=== PATIENT | female | born 1945 | race Caucasian/White ===

== ENCOUNTER 2017-03-13 02:55 | Inpatient (IN) | payer MEDICARE, OTHER ==
[~2017-03-13] VITALS: Ht 162.6 cm; Wt 64.0 kg
[~2017-03-13 02:55] MED LIST: BENICAR; CEFD300C37 PO; CLON0.1T PO; CLONIDINE; HYDR50CA PO; LISI-170 PO; LORA2TAB99 PO; NEBI20TA2 PO; OLME40TA12; OXYC20TA42 PO; OXYC5TAB3 PO
[2017-03-13 03:21] LABS: HEMATOCRIT 36.7 % (34.6-47.8); HEMOGLOBIN 12.3 g/dL (11.7-16.4); WHITE BLOOD COUNT 6.6 x10^3/uL (3.4-10)
[2017-03-13] MEDS ORDERED: SODIUM CHLORIDE FLUSH 10ML SYR IVF ONE (03:30)
[2017-03-13] MEDS ORDERED: ONDANSETRON 2MG/ML, 2ML IVPush ONE (03:30)
[2017-03-13] MEDS ORDERED: SODIUM CHLORIDE 0.9% 1,000ML IVBOLUS ONE (03:30)
[2017-03-13] MEDS ORDERED: ONDANSETRON 2MG/ML, 2ML ONE (03:34)
[2017-03-13 03:35] LABS: ASPARTATE AMINO TRANSFERASE 17 U/L (15-37); BLOOD UREA NITROGEN 17 mg/dL (7-18)
[2017-03-13 03:40] LABS: IS PT STATUS REG ER OR PRE ER? YES
[2017-03-13] MEDS ORDERED: CEFTRIAXONE PMX 1GM/50ML 50 ML IV ONE (04:00)
[2017-03-13] MEDS ORDERED: CEFTRIAXONE PMX 1GM/50ML 50 ML ONE (04:11)
[2017-03-13 05:00] VITALS: BP 174/99
[2017-03-13] MEDS ORDERED: BISACODYL 10 MG SUPP PR PRN (05:30)
[2017-03-13] MEDS ORDERED: ENALAPRILAT 1.25 MG/ML, 2ML IVPush PRN (05:30)
[2017-03-13] MEDS ORDERED: LABETALOL 5MG/ML, 20ML IVPush PRN (05:30)
[2017-03-13] MEDS ORDERED: MAGNESIUM SULFATE PMX 2GM/50ML 50 ML IV ONE (05:30)
[2017-03-13] MEDS: NEBIVOLOL MC SCH ×2 (05:30→13:30)
[2017-03-13] MEDS: SODIUM CHLORIDE 0.9% 1,000 ML IV SCH ×2 (05:42→13:16)
[2017-03-13 07:38] VITALS: BP 159/97
[2017-03-13] MEDS ORDERED: NEBIVOLOL HCL 40 MG PO SCH (09:00)
[2017-03-13 09:55] VITALS: BP 173/81
[2017-03-13] MEDS: OxyconTIN ER 20 MG TAB.ER PO SCH ×2 (10:13→20:59)
[2017-03-13] MEDS: ENOXAPARIN 40 MG/0.4 ML SQ SCH (10:14)
[2017-03-13] MEDS: LISINOPRIL 20 MG TABLET PO SCH ×2 (10:14→20:59)
[2017-03-13 13:33] VITALS: BP 156/90
[2017-03-13] MEDS ORDERED: LORazepam 1MG TABLET ONE (14:19)
[2017-03-13] MEDS: OXYcodone IR 5MG TABLET PO PRN (16:55)
[2017-03-13] MEDS: PROMETHAZINE 25 MG/ML, 1ML IM PRN (17:06)
[2017-03-13 19:34] VITALS: BP 127/74
[2017-03-13] MEDS: METOPROLOL TARTRATE 25 MG TABLET PO SCH (19:36)
[2017-03-14] MEDS: PROMETHAZINE 25 MG/ML, 1ML IM PRN (00:19)
[2017-03-14 01:44] VITALS: BP 144/77
[2017-03-14] MEDS: CEFTRIAXONE PMX 1GM/50ML 50 ML IV SCH (05:08)
[2017-03-14] MEDS: OXYcodone IR 5MG TABLET PO PRN ×2 (05:11→18:07)
[2017-03-14 05:17] LABS: HEMATOCRIT 39.6 % (34.6-47.8); HEMOGLOBIN 13.1 g/dL (11.7-16.4); WHITE BLOOD COUNT 5.7 x10^3/uL (3.4-10)
[2017-03-14 05:34] LABS: ASPARTATE AMINO TRANSFERASE 22 U/L (15-37); BLOOD UREA NITROGEN 9 mg/dL (7-18)
[2017-03-14] MEDS: METOPROLOL TARTRATE 25 MG TABLET PO SCH ×2 (06:08→18:06)
[2017-03-14] MEDS ORDERED: ACETAMINOPHEN 325 MG TABLET PO PRN (08:00)
[2017-03-14 08:17] VITALS: BP 145/79
[2017-03-14] MEDS: OxyconTIN ER 20 MG TAB.ER PO SCH ×2 (09:31→21:18)
[2017-03-14] MEDS: LISINOPRIL 20 MG TABLET PO SCH ×2 (09:32→21:19)
[2017-03-14] MEDS: DOCUSATE 100 MG CAPSULE PO SCH ×2 (09:32→21:18)
[2017-03-14] MEDS: POLYETHYLENE GLYCOL 17 GM PACKET PO SCH (09:33)
[2017-03-14] MEDS: ENOXAPARIN 40 MG/0.4 ML SQ SCH (09:35)
[2017-03-14] MEDS: SUMATRIPTAN 25 MG TABLET PO PRN ×2 (12:13→22:33)
[2017-03-14 13:59] VITALS: BP 164/84
[2017-03-14] MEDS ORDERED: LORazepam 1MG TABLET ONE (15:58)
[2017-03-14 18:05] VITALS: BP 116/74
[2017-03-14 21:13] VITALS: BP 116/70
[2017-03-15] MEDS ORDERED: LORazepam 1MG TABLET ONE ×4 (00:05→23:57)
[2017-03-15 03:57] VITALS: BP 160/88
[2017-03-15] MEDS: CEFTRIAXONE PMX 1GM/50ML 50 ML IV SCH (03:59)
[2017-03-15] MEDS: METOPROLOL TARTRATE 25 MG TABLET PO SCH ×2 (05:38→18:19)
[2017-03-15] MEDS: OXYcodone IR 5MG TABLET PO PRN (05:39)
[2017-03-15 07:54] VITALS: BP 155/71
[2017-03-15] MEDS: LISINOPRIL 20 MG TABLET PO SCH ×2 (08:16→19:44)
[2017-03-15] MEDS: DOCUSATE 100 MG CAPSULE PO SCH ×2 (08:16→19:45)
[2017-03-15] MEDS: OxyconTIN ER 20 MG TAB.ER PO SCH ×2 (08:16→19:44)
[2017-03-15] MEDS: ENOXAPARIN 40 MG/0.4 ML SQ SCH (08:17)
[2017-03-15] MEDS: POLYETHYLENE GLYCOL 17 GM PACKET PO SCH (08:17)
[2017-03-15] MEDS ORDERED: SUMATRIPTAN 50 MG TABLET PO PRN (10:30)
[2017-03-15] MEDS: BUTALB/APAP/CAFFEINE 50MG/325MG/40MG PO PRN (14:13)
[2017-03-15 14:29] VITALS: BP 156/79
[2017-03-15 18:18] VITALS: BP 127/73
[2017-03-16 03:37] VITALS: BP 128/81
[2017-03-16] MEDS: BUTALB/APAP/CAFFEINE 50MG/325MG/40MG PO PRN (03:46)
[2017-03-16] MEDS: CEFTRIAXONE PMX 1GM/50ML 50 ML IV SCH (03:46)
[2017-03-16] MEDS: METOPROLOL TARTRATE 25 MG TABLET PO SCH ×2 (06:00→17:49)
[2017-03-16] MEDS ORDERED: LORazepam 1MG TABLET ONE ×2 (07:49→16:16)
[2017-03-16] MEDS: LISINOPRIL 20 MG TABLET PO SCH ×2 (08:02→20:27)
[2017-03-16] MEDS: POLYETHYLENE GLYCOL 17 GM PACKET PO SCH (08:02)
[2017-03-16] MEDS: ENOXAPARIN 40 MG/0.4 ML SQ SCH (08:02)
[2017-03-16] MEDS: DOCUSATE 100 MG CAPSULE PO SCH ×2 (08:03→20:27)
[2017-03-16] MEDS: OxyconTIN ER 20 MG TAB.ER PO SCH ×2 (08:03→20:28)
[2017-03-16 08:20] VITALS: BP 147/89
[2017-03-16] MEDS: OXYcodone IR 5MG TABLET PO PRN ×4 (12:00→22:13)
[2017-03-16 14:35] VITALS: BP 110/66
[2017-03-16 17:49] VITALS: BP 98/64
[2017-03-16 19:53] VITALS: BP 112/72
[2017-03-17] MEDS ORDERED: LORazepam 1MG TABLET ONE ×3 (00:01→17:41)
[2017-03-17] MEDS ORDERED: SUMATRIPTAN 100 MG TABLET PO PRN (01:00)
[2017-03-17 02:30] VITALS: BP 142/85
[2017-03-17] MEDS: CEFTRIAXONE PMX 1GM/50ML 50 ML IV SCH (03:45)
[2017-03-17] MEDS: OXYcodone IR 5MG TABLET PO PRN ×4 (04:34→23:51)
[2017-03-17] MEDS: METOPROLOL TARTRATE 25 MG TABLET PO SCH ×2 (04:34→17:46)
[2017-03-17 08:08] VITALS: BP 139/79
[2017-03-17] MEDS: OxyconTIN ER 20 MG TAB.ER PO SCH ×2 (08:42→20:10)
[2017-03-17] MEDS: DOCUSATE 100 MG CAPSULE PO SCH ×2 (08:42→20:08)
[2017-03-17] MEDS: ENOXAPARIN 40 MG/0.4 ML SQ SCH (08:42)
[2017-03-17] MEDS: POLYETHYLENE GLYCOL 17 GM PACKET PO SCH (08:42)
[2017-03-17] MEDS: LISINOPRIL 20 MG TABLET PO SCH ×2 (08:42→20:09)
[2017-03-17 13:57] VITALS: BP 132/76
[2017-03-17] MEDS ORDERED: CEFD300C37 PO (18:23)
[2017-03-17] MEDS ORDERED: OXYC5TAB3 PO (18:23)
[2017-03-17] MEDS ORDERED: ENOX40SY4 SQ (18:23)
[2017-03-17] MEDS ORDERED: SUMA100T3 PO (18:23)
[2017-03-17] MEDS ORDERED: METH12VI2 SQ (18:23)
[2017-03-17] MEDS ORDERED: BUTA-177 PO (18:23)
[2017-03-17] MEDS ORDERED: METHYLNALTREXONE 12 MG/0.6 ML SQ SCH (18:30)
[2017-03-17] MEDS ORDERED: MAGNESIUM CITRATE 300ML ORAL SOL PO PRN ×2 (18:30→19:30)
[2017-03-17] MEDS ORDERED: LABETALOL 5MG/ML, 20ML IVPush PRN (19:30)
[2017-03-17] MEDS ORDERED: ENALAPRILAT 1.25 MG/ML, 2ML IVPush PRN (19:30)
[2017-03-17] MEDS ORDERED: ACETAMINOPHEN 325 MG TABLET PO PRN (19:30)
[2017-03-17 19:53] VITALS: BP 102/65
[2017-03-17] MEDS: PROMETHAZINE 25 MG/ML, 1ML IM PRN (21:28)
[2017-03-18] MEDS ORDERED: LORazepam 2 MG/ML, 1ML ONE (01:04)
[2017-03-18] MEDS ORDERED: LORazepam 1MG TABLET ONE (01:08)
[2017-03-18 01:29] VITALS: BP 85/51
[2017-03-18] MEDS: METOPROLOL TARTRATE 25 MG TABLET PO SCH (06:00)
[2017-03-18] MEDS: OXYcodone IR 5MG TABLET PO PRN ×2 (06:02→13:06)
[2017-03-18 06:06] VITALS: BP 98/56
[2017-03-18] MEDS ORDERED: CEFDINIR 300 MG CAPSULE PO SCH (09:00)
[2017-03-18] MEDS: LISINOPRIL 20 MG TABLET PO SCH (09:28)
[2017-03-18] MEDS: OxyconTIN ER 20 MG TAB.ER PO SCH (09:28)
[2017-03-18] MEDS: DOCUSATE 100 MG CAPSULE PO SCH (09:29)
[2017-03-18] MEDS: ENOXAPARIN 40 MG/0.4 ML SQ SCH (09:29)
[2017-03-18] MEDS: POLYETHYLENE GLYCOL 17 GM PACKET PO SCH (09:29)
[2017-03-18 13:59] VITALS: BP 90/47
== END 2017-03-18 14:29 | DRG 91 ==
LOC: ED 04:08 → EDIP 04:09 → ED 04:18 → SUATTDRO 04:36 → 4NOR 04:49
PROVIDERS: ADMIT Internal Medicine
DX: G92 Toxic encephalopathy (principal); N17.0 Acute kidney failure with tubular necrosis; E44.0 Moderate protein-calorie malnutrition; N10 Acute pyelonephritis; R17 Unspecified jaundice; E86.0 Dehydration; F11.23 Opioid dependence with withdrawal; B96.20 Unspecified Escherichia coli [E. coli] as the cause of diseases classified elsewhere; F32.9 Major depressive disorder, single episode, unspecified; F41.1 Generalized anxiety disorder; G43.909 Migraine, unspecified, not intractable, without status migrainosus; G44.209 Tension-type headache, unspecified, not intractable; G89.29 Other chronic pain; I11.9 Hypertensive heart disease without heart failure; I45.81 Long QT syndrome; K59.00 Constipation, unspecified; Z79.899 Other long term (current) drug therapy; Z86.73 Personal history of transient ischemic attack (TIA), and cerebral infarction without residual deficits; Z68.24 Body mass index [BMI] 24.0-24.9, adult; T42.8X5A Adverse effect of antiparkinsonism drugs and other central muscle-tone depressants, initial encounter; T42.4X5A Adverse effect of benzodiazepines, initial encounter
CPT/HCPCS: 36415; 71010; 74176; 80053; 81001; 83690; 83735; 84100; 84484; 85025; 87077; 87086; 87186; 93005; 96365; 96375; J0696; J1650; J2405; J2550; J3475; J7030

== ENCOUNTER 2017-04-09 15:57 | Emergency (ER) | payer MEDICARE, OTHER ==
[~2017-04-09] VITALS: Ht 167.6 cm; Wt 75.0 kg
[~2017-04-09 15:57] MED LIST changes: +BUTA-177 PO; +ENOX40SY4 SQ; +METH12VI2 SQ; +SUMA100T3 PO
[2017-04-09] MEDS ORDERED: SODIUM CHLORIDE 0.9% 1,000 ML IV ONE (16:28)
[2017-04-09] MEDS ORDERED: SODIUM CHLORIDE 0.9% 1,000ML IVBOLUS ONE (16:30)
[2017-04-09] MEDS ORDERED: ONDANSETRON 2MG/ML, 2ML IVPush ONE (16:30)
[2017-04-09] MEDS ORDERED: MORPHINE SULFATE 4 MG/ML, 1ML IVPush PRN (16:30)
[2017-04-09] MEDS ORDERED: FAMOTIDINE 20 MG/2 ML IVP ONE (16:30)
[2017-04-09] MEDS ORDERED: MAALOX/HYOSCYAMINE/LIDOCAINE 45 ML BTL PO ONE (16:30)
[2017-04-09] MEDS ORDERED: MORPHINE SULFATE 4 MG/ML, 1ML ONE (17:14)
[2017-04-09] MEDS ORDERED: ONDANSETRON 2MG/ML, 2ML ONE (17:14)
[2017-04-09] MEDS ORDERED: MAALOX/HYOSCYAMINE/LIDOCAINE 45 ML BTL ONE (17:14)
[2017-04-09] MEDS ORDERED: FAMOTIDINE 20 MG/2 ML ONE (17:14)
[2017-04-09 18:07] LABS: HEMATOCRIT 42.7 % (34.6-47.8); HEMOGLOBIN 14.3 g/dL (11.7-16.4); WHITE BLOOD COUNT 11.2 x10^3/uL (3.4-10)
[2017-04-09 18:20] LABS: BLOOD UREA NITROGEN 12 mg/dL (7-18)
[2017-04-09 18:23] LABS: ASPARTATE AMINO TRANSFERASE 25 U/L (15-37)
[2017-04-09] MEDS ORDERED: LORazepam 2 MG/ML, 1ML ONE (18:24)
[2017-04-09] MEDS ORDERED: LORazepam 2 MG/ML, 1ML IVPush ONE (18:30)
[2017-04-09] MEDS ORDERED: CEFTRIAXONE PMX 1GM/50ML 50 ML ONE (18:52)
[2017-04-09] MEDS ORDERED: CEFTRIAXONE PMX 1GM/50ML 50 ML IV SCH (19:00)
[2017-04-09 19:52] VITALS: BP 184/91
== END 2017-04-09 19:56 | disposition home or self-care (01) ==
LOC: ED 19:50
DX: N30.00 Acute cystitis without hematuria (principal); G89.29 Other chronic pain; K59.00 Constipation, unspecified; F41.9 Anxiety disorder, unspecified; F17.200 Nicotine dependence, unspecified, uncomplicated; I10 Essential (primary) hypertension; Z90.710 Acquired absence of both cervix and uterus; Z88.5 Allergy status to narcotic agent; Z88.6 Allergy status to analgesic agent
CPT/HCPCS: 36415; 74022; 80053; 81001; 83605; 83690; 85025; 87077; 87086; 87186; 96361; 96365; 96375; 99285; J0696; J2060; J2405; J7030; S0028

== ENCOUNTER 2017-04-25 21:41 | Emergency (ER) | payer MEDICARE, OTHER ==
[~2017-04-25] VITALS: Ht 157.5 cm; Wt 60.0 kg
[~2017-04-25 21:41] MED LIST changes: +CYCL-259 PO; +ERGO500017 PO; +LORA-446 PO; +OMEP-110 PO; +OXYC1TAB7 PO; +SENN1TAB7 PO
[2017-04-25] MEDS ORDERED: FAMOTIDINE 20 MG/2 ML IVP ONE (22:30)
[2017-04-25] MEDS ORDERED: FAMOTIDINE 20 MG/2 ML ONE (22:34)
[2017-04-25 23:04] LABS: HEMATOCRIT 43.7 % (34.6-47.8); HEMOGLOBIN 14.4 g/dL (11.7-16.4); WHITE BLOOD COUNT 11.2 x10^3/uL (3.4-10)
[2017-04-25 23:12] LABS: ASPARTATE AMINO TRANSFERASE 26 U/L (15-37); BLOOD UREA NITROGEN 14 mg/dL (7-18)
[2017-04-25 23:44] LABS: PATH.CAST-FLAG NOT PRESENT; SPERM-FLAG NOT PRESENT; SRC-FLAG NOT PRESENT; XTAL-FLAG NOT PRESENT; YLC-FLAG NOT PRESENT
[2017-04-26] MEDS ORDERED: CEFDINIR 300 MG CAPSULE PO ONE (00:30)
[2017-04-26 01:36] VITALS: BP 147/75
== END 2017-04-26 01:38 | disposition home or self-care (01) ==
LOC: ED 22:11
DX: N30.00 Acute cystitis without hematuria (principal); G89.29 Other chronic pain; I10 Essential (primary) hypertension; Z90.710 Acquired absence of both cervix and uterus
CPT/HCPCS: 36415; 74022; 80053; 81001; 83690; 85025; 87077; 87086; 87186; 96374; S0028

== ENCOUNTER 2017-07-22 16:33 | Emergency (ER) | payer MEDICARE, OTHER ==
[~2017-07-22] VITALS: Ht 177.8 cm; Wt 65.0 kg
[2017-07-22 16:45] VITALS: BP 125/74
[2017-07-22] MEDS ORDERED: MORPHINE SULFATE 4 MG/ML, 1ML ONE ×2 (16:58→17:40)
[2017-07-22] MEDS ORDERED: LORazepam 2 MG/ML, 1ML ONE (16:59)
[2017-07-22] MEDS ORDERED: LORazepam 2 MG/ML, 1ML IVPush ONE (17:00)
[2017-07-22] MEDS: MORPHINE SULFATE 4 MG/ML, 1ML IVPush PRN ×2 (17:14→17:45)
[2017-07-23] MEDS ORDERED: LORA2TAB99 PO (20:26)
[2017-07-23] MEDS ORDERED: AMIT100T PO (20:26)
[2017-07-23] MEDS ORDERED: HYDR-3307 PO (20:26)
== END 2017-07-22 18:15 | disposition home or self-care (01) ==
LOC: ED 18:09
DX: M79.7 Fibromyalgia (principal); I10 Essential (primary) hypertension
CPT/HCPCS: 96374; 96375; 96376; 99284; J2060

== ENCOUNTER 2017-07-23 13:05 | Emergency (ER) | payer MEDICARE ==
[~2017-07-23] VITALS: Ht 157.5 cm; Wt 63.0 kg
[2017-07-23 14:17] LABS: BASOPHILS # (AUTO) 0.04 x10^3/uL (0-0.1); BASOPHILS % (AUTO) 0 % (0-1); EOSINOPHILS # (AUTO) 0.07 x10^3/uL (0-0.4); EOSINOPHILS % (AUTO) 1 % (1-7); LYMPHOCYTES # (AUTO) 1.83 x10^3/uL (1-3.4); LYMPHOCYTES % (AUTO) 18 % (22-44); MD NO; MEAN CORPUSCULAR HEMOGLOBIN 31.7 pg (27.0-34.8); MEAN CORPUSCULAR HGB CONC 33.2 g/dL (32.4-35.8); MEAN CORPUSCULAR VOLUME 95.3 fL (80-100); MEAN PLATELET VOLUME 7.1 fL (7.4-10.4); MONOCYTES % (AUTO) 6 % (2-9); NEUTROPHILS # (AUTO) 7.89 x10^3/uL (1.8-6.8); NEUTROPHILS % (AUTO) 76 % (42-75); PLATELET COUNT 415 x10^3/uL (130-400); RED CELL DISTRIBUTION WIDTH 16.2 % (9.6-15.2)
[2017-07-23] MEDS ORDERED: ASPIRIN 81 MG TABLET CHEW ONE (14:27)
[2017-07-23 14:31] LABS: ALBUMIN 4.3 g/dL (3.4-5.0); ANION GAP 9 mmol/L (5-15); CALCIUM 9.2 mg/dL (8.5-10.1); CHLORIDE 109 mmol/L (98-107)
[2017-07-23 14:35] LABS: ALANINE AMINOTRANSFERASE 29 U/L (12-78); ALKALINE PHOSPHATASE 100 U/L (45-117); BILIRUBIN,TOTAL 0.6 mg/dL (0.2-1.0); CREATININE 1.32 mg/dL (0.55-1.02); TOTAL PROTEIN 8.9 g/dL (6.4-8.2)
[2017-07-23 14:37] LABS: MICROSCOPIC AUTO
[2017-07-23 14:47] LABS: CULTURE INDICATED? YES
[2017-07-23] MEDS ORDERED: LORazepam 1MG TABLET PO ONE (16:00)
[2017-07-23] MEDS ORDERED: LORazepam 1MG TABLET ONE (16:23)
[2017-07-23 16:24] LABS: TROPONIN I < 0.015 ng/mL (0.000-0.045)
[2017-07-23] MEDS ORDERED: IBUPROFEN 200 MG TABLET ONE (16:27)
[2017-07-23 17:07] VITALS: BP 179/89
[2017-07-23] MEDS ORDERED: HYDR-3307 PO (20:26)
[2017-07-23] MEDS ORDERED: AMIT100T PO (20:26)
[2017-07-23] MEDS ORDERED: LORA2TAB99 PO (20:26)
== END 2017-07-23 17:09 | disposition home or self-care (01) ==
LOC: ED 17:00
DX: N39.0 Urinary tract infection, site not specified (principal); G89.29 Other chronic pain; M79.7 Fibromyalgia
CPT/HCPCS: 36415; 71045; 80053; 81001; 84484; 85025; 87077; 87086; 87186; 99285

== ENCOUNTER 2017-07-23 18:28 | Observation (INO) | payer MEDICARE ==
[~2017-07-23] VITALS: Ht 157.5 cm; Wt 60.0 kg
[2017-07-23] MEDS ORDERED: ZIPRASIDONE 20 MG INJ IM ONE ×2 (19:00→21:05)
[2017-07-23 19:20] LABS: SALICYLATE LEVEL 5.7 mg/dL (2.8-20.0)
[2017-07-23 19:22] LABS: ACETAMINOPHEN < 2 mcg/mL (10-30)
[2017-07-23] MEDS ORDERED: LORazepam 1MG TABLET ONE (19:58)
[2017-07-23] MEDS ORDERED: LORazepam 1MG TABLET PO ONE (20:00)
[2017-07-23] MEDS ORDERED: LORA2TAB99 PO (20:26)
[2017-07-23] MEDS ORDERED: HYDR-3307 PO (20:26)
[2017-07-23] MEDS ORDERED: AMIT100T PO (20:26)
[2017-07-23 20:37] LABS: MICROSCOPIC AUTO
[2017-07-23 20:48] LABS: AMPHETAMINE SCREEN, URINE Negative (Negative); BARBITURATE SCREEN, URINE Negative (Negative); BENZODIAZEPINE SCREEN, URINE Positive (Negative); CANNABINOID SCREEN, URINE Negative (Negative); COCAINE SCREEN, URINE Negative (Negative); METHADONE SCREEN, URINE Negative (Negative); OPIATE SCREEN, URINE Positive (Negative)
[2017-07-23] MEDS ORDERED: CIPROFLOXACIN 500 MG TABLET PO ONE (21:00)
[2017-07-23] MEDS ORDERED: CIPROFLOXACIN 500 MG TABLET ONE (21:05)
[2017-07-24] MEDS ORDERED: NEBIVOLOL HCL 5 MG TABLET PO ONE (09:00)
[2017-07-24] MEDS ORDERED: LORazepam 1MG TABLET ONE ×3 (09:53→21:00)
[2017-07-24] MEDS ORDERED: LORazepam 1MG TABLET PO ONE (10:00)
[2017-07-24] MEDS ORDERED: ONDANSETRON ODT 4 MG PO PRN (15:30)
[2017-07-24] MEDS ORDERED: ACETAMINOPHEN 325 MG TABLET PO PRN (15:30)
[2017-07-24] MEDS ORDERED: HYDROcodone/APAP 10/325 MG TABLET ONE ×2 (17:08→21:18)
[2017-07-24] MEDS: HYDROcodone/APAP 10/325 MG TABLET PO SCH ×2 (17:09→21:00)
[2017-07-24] MEDS ORDERED: TRAZODONE 50MG TABLET PO PRN (21:00)
[2017-07-24] MEDS: NEBIVOLOL HCL 5 MG TABLET PO SCH (21:22)
[2017-07-24] MEDS: AMITRIPTYLINE 100 MG TABLET PO SCH (21:22)
[2017-07-24] MEDS: CEFDINIR 300 MG CAPSULE PO SCH (21:23)
[2017-07-24 21:46] VITALS: BP 146/68
[2017-07-25] MEDS: HYDROcodone/APAP 10/325 MG TABLET PO PRN ×3 (03:30→13:37)
[2017-07-25 08:00] VITALS: BP 173/81
[2017-07-25] MEDS: CEFDINIR 300 MG CAPSULE PO SCH ×2 (08:58→20:18)
[2017-07-25 16:39] VITALS: BP 128/82
[2017-07-25] MEDS ORDERED: LORazepam 1MG TABLET PO SCH (17:00)
[2017-07-25 20:00] VITALS: BP 120/72
[2017-07-25] MEDS: AMITRIPTYLINE 100 MG TABLET PO SCH (20:01)
[2017-07-25] MEDS: NEBIVOLOL HCL 5 MG TABLET PO SCH (20:01)
[2017-07-26 07:41] VITALS: BP 165/83
[2017-07-26] MEDS: LORazepam 1MG TABLET PO PRN ×3 (07:51→14:28)
[2017-07-26] MEDS: HYDROcodone/APAP 10/325 MG TABLET PO PRN ×2 (07:51→14:28)
[2017-07-26] MEDS: CEFDINIR 300 MG CAPSULE PO SCH (07:51)
[2017-07-26 12:26] VITALS: BP 140/75
[2017-07-26] MEDS ORDERED: CEFD300C37 PO (15:48)
== END 2017-07-26 16:32 | disposition home or self-care (01) ==
LOC: ED 20:50 → EDIP 21:10 → INTOOBSV 21:10 → 2N 07-24 21:40
PROVIDERS: ADMIT Surgery; ATTEND Surgery
DX: R45.851 Suicidal ideations (principal); N39.0 Urinary tract infection, site not specified; F32.9 Major depressive disorder, single episode, unspecified; G89.29 Other chronic pain; M79.7 Fibromyalgia; F11.20 Opioid dependence, uncomplicated; F13.20 Sedative, hypnotic or anxiolytic dependence, uncomplicated; F41.9 Anxiety disorder, unspecified; I10 Essential (primary) hypertension; D72.829 Elevated white blood cell count, unspecified; D47.3 Essential (hemorrhagic) thrombocythemia; Z90.710 Acquired absence of both cervix and uterus; Z79.891 Long term (current) use of opiate analgesic
CPT/HCPCS: 36415; 80307; 80329; 81001; 93005; 96372; 99285; G0378; J3486; G0479; G0480

== ENCOUNTER 2017-11-24 18:58 | Emergency (ER) | payer MEDICARE, OTHER ==
[~2017-11-24] VITALS: Ht 167.6 cm; Wt 85.0 kg
[~2017-11-24 18:58] MED LIST changes: +AMIT100T PO; +CLON0.2T PO; +HYDR-3307 PO; +OXYC5TAB2 PO
[2017-11-24] MEDS ORDERED: OXYcodone IR 5MG TABLET PO ONE (19:30)
[2017-11-24] MEDS ORDERED: OXYcodone/APAP 5/325MG TABLET ONE (19:37)
[2017-11-24 20:10] VITALS: BP 190/121
== END 2017-11-24 20:11 | disposition home or self-care (01) ==
LOC: ED 20:01
DX: I10 Essential (primary) hypertension (principal); G89.29 Other chronic pain; M79.1 Myalgia; G43.909 Migraine, unspecified, not intractable, without status migrainosus; F41.9 Anxiety disorder, unspecified; M19.90 Unspecified osteoarthritis, unspecified site
CPT/HCPCS: 99283

== ENCOUNTER 2020-04-06 20:45 | Inpatient (IN) | payer MEDICARE, OTHER ==
[~2020-04-06] VITALS: Ht 162.6 cm; Wt 67.1 kg
[~2020-04-06 20:45] MED LIST changes: -CLON0.1T PO; +CLON0.1T22 PO; +HYDR-3246 PO; -HYDR-3307 PO; +SENN-177 PO; -SENN1TAB7 PO
--- NOTE | 2020-04-06 21:01 | NUR ---
PT CHOOSING NOT TO ANSWER QUESTIONS. RESP EVEN & UNLABORED, SPEECH CLEAR, SKIN PALE PINK/W/D, ECCHYMOSIS TO LT HAND. PT ABLE TO MOVE ALL EXTREMETIES VOLUNTARILY.
--- NOTE | 2020-04-06 21:31 | NUR ---
PT TO CT PER DARYA
[2020-04-06 21:33] LABS: BASOPHILS # (AUTO) 0.05 x10^3/uL (0-0.1); BASOPHILS % (AUTO) 1 % (0-1); EOSINOPHILS # (AUTO) 0.27 x10^3/uL (0-0.4); EOSINOPHILS % (AUTO) 4 % (1-7); LYMPHOCYTES # (AUTO) 1.42 x10^3/uL (1-3.4); LYMPHOCYTES % (AUTO) 23 % (22-44); MD NO; MEAN CORPUSCULAR HEMOGLOBIN 30.9 pg (27.0-34.8); MEAN CORPUSCULAR HGB CONC 32.8 g/dL (32.4-35.8); MEAN PLATELET VOLUME 7.8 fL (7.4-10.4); MONOCYTES # (AUTO) 0.78 x10^3/uL (0.2-0.8); MONOCYTES % (AUTO) 13 % (2-9); NEUTROPHILS # (AUTO) 3.67 x10^3/uL (1.8-6.8); NEUTROPHILS % (AUTO) 59 % (42-75); PLATELET COUNT 288 x10^3/uL (130-400); RED CELL DISTRIBUTION WIDTH 15.3 % (9.6-15.2)
[2020-04-06] MEDS ORDERED: APIX5TAB PO (21:39)
--- NOTE | 2020-04-06 21:40 | NUR ---
CALLED PT'S SPOUSE, ADINA JOY, AT [phone]; REACHED HIS . LM REQUESTING RETURN CALL. CALLED NUMBER LISTED PT'S HOME: [phone]; REACHED GENERIC , NO MESSAGE LEFT.
[2020-04-06 21:41] LABS: ALANINE AMINOTRANSFERASE 26 U/L (12-78); ALBUMIN 3.2 g/dL (3.4-5.0); ANION GAP 6 mmol/L (5-15); CALCIUM 8.7 mg/dL (8.5-10.1); CHLORIDE 111 mmol/L (98-107)
[2020-04-06 21:42] LABS: SALICYLATE LEVEL < 1.7 mg/dL (2.8-20.0)
[2020-04-06 21:43] LABS: MICROSCOPIC AUTO
[2020-04-06 21:52] LABS: ALKALINE PHOSPHATASE 91 U/L (45-117); BILIRUBIN,TOTAL 0.2 mg/dL (0.2-1.0); CREATININE 1.13 mg/dL (0.55-1.02); TOTAL PROTEIN 6.9 g/dL (6.4-8.2)
[2020-04-06] MEDS ORDERED: HYDR-3245 PO (21:56)
[2020-04-06] MEDS ORDERED: CLON1PAT TP (21:56)
[2020-04-06] MEDS ORDERED: METO100T7 PO (21:56)
[2020-04-06] MEDS ORDERED: GABA300C PO ×3 (21:56→22:20)
[2020-04-06] MEDS ORDERED: TRAZ-96 PO (21:56)
[2020-04-06] MEDS ORDERED: TOPI50TA8 PO (21:56)
[2020-04-06] MEDS ORDERED: DICY20TA3 PO (21:56)
[2020-04-06] MEDS ORDERED: ONDA-89 PO (21:56)
[2020-04-06] MEDS ORDERED: SERT-238 PO (21:56)
--- NOTE | 2020-04-06 21:56 | NUR ---
PT'S SPOUSE RETURNED MY CALL. SPOUSE STATED HE HEARD A NOISE, FOUND PT ON THE FLOOR, PT WAS "SOMEWHAT COMBATIVE" AND WOULDN'T ANSWER HIS QUESTIONS. SPOUSE ABLE TO GET PT ONTO A STOOL BUT COULDN'T GET HER FURTHER; CALLED EMS FOR ASSISTANCE. PT "COMBATIVE WITH ONE OF THE EMS GUYS", PT WOULDN'T ANSWER ALL OF EMS'S QUESTIONS. SPOUSE STATES PT HAS HX CHRONIC BACK PAIN, HAS BEEN COMBATIVE RECENTLY, STAYS UP LATE AND SLEEPS DURING THE DAY. SPOUSE FILLS HER PILL BOX BUT ISN'T SURE IF SHE TAKES HER MEDS CORRECTLY. SPOUSE STATES "S[place] BEEN [place] THE PAST 7 MONTHS". STATES "SHE HAS A PRIMARY CARE DOCTOR, BUT WITH COVID WE HAVEN'T BEEN ABLE TO GET IN TO SEE HIM." PT STATES PT TAKES XARELTO, BUT ISN'T SURE OF THE NAMES OF HER OTHER MEDICATIONS - LIST WILL BE ACCESSED VIA EXTERNAL MEDICINE HX. SPOUSE STATES HE DOESN'T THINK HE CAN CONTINUE TO CARE FOR PT ON HIS OWN AND DOESN'T THINK HE CAN CARE FOR HER TONIGHT. ASKED HIM IF THEY'VE CONSIDERED SOME LEVEL OF ASSISTED LIVING. SPOUSE STATES THEY HAVE, BUT HE HASN'T ACTED ON IT DUE TO FINANCIAL REASONS. SPOUSE STATES "I'M NOT SURE WHO TO TURN TO". WILL CONSULT ERP RE: SOCIAL CONSULT. DISCUSSED CALLING SPOUSE LATER W/ POC; SPOUSE STATES HE GOES TO BED AT 9; AGREEABLE TO LEAVING MESSAGE ON HIS PHONE.
[2020-04-06] MEDS ORDERED: CEFTRIAXONE PMX 1GM/50ML 50 ML IV ONE (22:00)
[2020-04-06] MEDS ORDERED: PLEASE ENTER HEIGHT AND WEIGHT MC SCH (22:00)
[2020-04-06 22:03] LABS: AMPHETAMINE SCREEN, URINE Negative (Negative); BARBITURATE SCREEN, URINE Negative (Negative); BENZODIAZEPINE SCREEN, URINE Negative (Negative); CANNABINOID SCREEN, URINE Negative (Negative); COCAINE SCREEN, URINE Negative (Negative); METHADONE SCREEN, URINE Negative (Negative); OPIATE SCREEN, URINE Positive (Negative)
--- NOTE | 2020-04-06 22:10 | NUR ---
PT REPORT TO CHELSEA MANSFIELD. PT CARE TRANSFERRED.
--- NOTE | 2020-04-06 22:14 | NUR ---
CALLED SPOUSE, INFORMED HIM PT WILL BE ADMITTED TONIGHT. SPOUSE EXPRESSED RELIEF. STATES PT'S STOMACH HAS BEEN DISTENDED. SPOUSE IS NOT AWARE OF PRIOR FALLS. STATES PT DOES NOT USE AN AMBULATORY AID BUT HER GAIT HAS BEEN INTERMITTENTLY UNSTEADY.
--- NOTE | 2020-04-06 22:16 | NUR ---
DR CIFUENTES UPDATED ON PHONE CALLS W/ SPOUSE.
[2020-04-06] MEDS ORDERED: LORA-445 PO (22:20)
--- NOTE | 2020-04-06 22:56 | NUR ---
PT WAS INCONTINENT OF URINE AND CLIMBING OUT OF THE [place]. PT ASSISTED BACK TO [facility]. PT WAS CLEANED UP WITH NEW LINENS. PT REFUED EKG. WILL TRY AGAIN LATER.
[2020-04-06] MEDS ORDERED: NEBIVOLOL HCL 20 MG PO SCH (23:00)
[2020-04-06] MEDS ORDERED: TRAZODONE 50MG TABLET PO SCH (23:00)
[2020-04-06] MEDS ORDERED: BISACODYL 10 MG SUPP PR PRN (23:00)
[2020-04-06] MEDS ORDERED: AMITRIPTYLINE 50 MG TABLET PO SCH (23:00)
[2020-04-06] MEDS ORDERED: hydrALAzine 20 MG/ML, 1ML IVPush PRN (23:00)
[2020-04-06] MEDS ORDERED: ONDANSETRON 4 MG TABLET PO PRN (23:00)
[2020-04-06] MEDS ORDERED: POLYETHYLENE GLYCOL 17 GM PACKET PO PRN (23:00)
[2020-04-06] MEDS ORDERED: GABAPENTIN 300 MG CAPSULE PO SCH (23:00)
[2020-04-06] MEDS ORDERED: cloniDINE 0.1MG PATCH TD SCH (23:00)
--- NOTE | 2020-04-06 23:29 | NUR ---
Report given to Jenifer
[2020-04-07] MEDS: CEFTRIAXONE PMX 1GM/50ML 50 ML IV SCH ×2 (01:34→05:15)
[2020-04-07] MEDS: METOPROLOL TARTRATE 100 MG TAB PO SCH ×3 (01:35→21:00)
[2020-04-07] MEDS: DICYCLOMINE 20 MG TABLET PO SCH ×5 (01:37→21:10)
[2020-04-07 01:38] VITALS: BP 188/94
[2020-04-07] MEDS: TOPIRAMATE 25 MG TABLET PO SCH ×3 (01:46→21:10)
[2020-04-07] MEDS: APIXABAN 5 MG TABLET PO SCH ×3 (01:47→21:09)
[2020-04-07] MEDS: OXYcodone IR 5MG TABLET PO SCH ×3 (02:01→09:01)
[2020-04-07 05:44] LABS: BASOPHILS # (AUTO) 0.07 x10^3/uL (0-0.1); BASOPHILS % (AUTO) 1 % (0-1); EOSINOPHILS # (AUTO) 0.17 x10^3/uL (0-0.4); EOSINOPHILS % (AUTO) 2 % (1-7); LYMPHOCYTES # (AUTO) 1.26 x10^3/uL (1-3.4); LYMPHOCYTES % (AUTO) 15 % (22-44); MD NO; MEAN CORPUSCULAR HEMOGLOBIN 30.5 pg (27.0-34.8); MEAN CORPUSCULAR HGB CONC 32.4 g/dL (32.4-35.8); MEAN PLATELET VOLUME 7.3 fL (7.4-10.4); MONOCYTES # (AUTO) 0.82 x10^3/uL (0.2-0.8); MONOCYTES % (AUTO) 10 % (2-9); NEUTROPHILS # (AUTO) 6.13 x10^3/uL (1.8-6.8); NEUTROPHILS % (AUTO) 73 % (42-75); PLATELET COUNT 265 x10^3/uL (130-400); RED BLOOD COUNT 4.68 x10^6/uL (3.82-5.3); RED CELL DISTRIBUTION WIDTH 15.3 % (9.6-15.2)
[2020-04-07 05:47] LABS: CHLORIDE 114 mmol/L (98-107)
[2020-04-07 05:54] LABS: ANION GAP 6 mmol/L (5-15); CREATININE 1.01 mg/dL (0.55-1.02)
[2020-04-07] MEDS: METOPROLOL MC SCH ×2 (06:49→09:00)
[2020-04-07] MEDS: GABAPENTIN MC SCH ×2 (06:49→09:00)
[2020-04-07] MEDS: NEBIVOLOL MC SCH ×2 (06:49→09:00)
[2020-04-07 08:44] VITALS: BP 177/95
[2020-04-07] MEDS: SODIUM CHLORIDE FLUSH 10ML SYR IVF SCH ×2 (09:00→21:10)
[2020-04-07] MEDS: SENNA/DOCUSATE TABLET PO SCH (09:01)
[2020-04-07] MEDS: SERTRALINE 100MG TABLET PO SCH (09:01)
[2020-04-07] MEDS ORDERED: NALOXONE 1 MG/ML, 2ML ONE (12:14)
[2020-04-07] MEDS ORDERED: NALOXONE 0.4 MG/ML, 1ML IVPush ONE (12:30)
[2020-04-07] MEDS ORDERED: SODIUM CHLORIDE 0.9% 1,000ML IVBOLUS ONE (12:30)
[2020-04-07 13:40] VITALS: BP 155/75
[2020-04-07] MEDS ORDERED: PHARMACY INSTRUCTION MC PRN (14:00)
[2020-04-07] MEDS ORDERED: INSTRUCTION SEE COMMENTS XX PRN (14:00)
[2020-04-07] MEDS ORDERED: OXYcodone IR 5MG TABLET PO SCH (14:00)
[2020-04-07] MEDS: GABAPENTIN 400 MG CAPSULE PO SCH ×2 (17:00→17:51)
[2020-04-07] MEDS ORDERED: HALOPERIDOL 5 MG/ML IM PRN (18:00)
[2020-04-07 18:51] VITALS: BP 132/82
[2020-04-07] MEDS ORDERED: MELATONIN 3 MG TABLET PO SCH (21:00)
[2020-04-07] MEDS ORDERED: GABAPENTIN 300 MG CAPSULE PO SCH (21:00)
[2020-04-07 21:05] VITALS: BP 161/83
[2020-04-08] VITALS (20 sets, daily range): BP systolic 124–219; BP diastolic 75–111
[2020-04-08] MEDS: OXYcodone IR 5MG TABLET PO PRN ×2 (04:17→09:16)
[2020-04-08] MEDS: ACETAMINOPHEN 325 MG TABLET PO PRN ×2 (04:22→22:34)
[2020-04-08] MEDS: CEFTRIAXONE PMX 1GM/50ML 50 ML IV SCH (05:07)
[2020-04-08] MEDS: DICYCLOMINE 20 MG TABLET PO SCH ×5 (05:07→22:33)
[2020-04-08 05:32] LABS: BASOPHILS # (AUTO) 0.04 x10^3/uL (0-0.1); BASOPHILS % (AUTO) 0 % (0-1); EOSINOPHILS # (AUTO) 0.12 x10^3/uL (0-0.4); EOSINOPHILS % (AUTO) 1 % (1-7); LYMPHOCYTES # (AUTO) 1.31 x10^3/uL (1-3.4); LYMPHOCYTES % (AUTO) 15 % (22-44); MD NO; MEAN CORPUSCULAR HEMOGLOBIN 30.5 pg (27.0-34.8); MEAN CORPUSCULAR HGB CONC 32.4 g/dL (32.4-35.8); MEAN PLATELET VOLUME 7.7 fL (7.4-10.4); MONOCYTES # (AUTO) 0.77 x10^3/uL (0.2-0.8); MONOCYTES % (AUTO) 9 % (2-9); NEUTROPHILS # (AUTO) 6.75 x10^3/uL (1.8-6.8); NEUTROPHILS % (AUTO) 75 % (42-75); PLATELET COUNT 283 x10^3/uL (130-400); RED BLOOD COUNT 4.68 x10^6/uL (3.82-5.3); RED CELL DISTRIBUTION WIDTH 15.1 % (9.6-15.2)
[2020-04-08 05:36] LABS: ANION GAP 8 mmol/L (5-15); CALCIUM 8.9 mg/dL (8.5-10.1); CHLORIDE 115 mmol/L (98-107); CREATININE 1.09 mg/dL (0.55-1.02)
[2020-04-08] MEDS: SENNA/DOCUSATE TABLET PO SCH (08:42)
[2020-04-08] MEDS: TOPIRAMATE 25 MG TABLET PO SCH ×3 (08:42→20:42)
[2020-04-08] MEDS: SERTRALINE 100MG TABLET PO SCH (08:42)
[2020-04-08] MEDS: METOPROLOL TARTRATE 100 MG TAB PO SCH ×3 (08:42→22:33)
[2020-04-08] MEDS: SODIUM CHLORIDE FLUSH 10ML SYR IVF SCH ×2 (08:42→20:44)
[2020-04-08] MEDS: APIXABAN 5 MG TABLET PO SCH ×3 (08:42→22:33)
[2020-04-08] MEDS ORDERED: NEBIVOLOL HCL 5 MG TABLET PO SCH (12:30)
[2020-04-08] MEDS: QUETIAPINE 25MG TABLET PO PRN (16:27)
[2020-04-08] MEDS: HYDROcodone/APAP 10/325 MG TABLET PO PRN (17:12)
[2020-04-08] MEDS ORDERED: hydrALAzine 20 MG/ML, 1ML ONE (17:28)
[2020-04-08] MEDS ORDERED: hydrALAzine 20 MG/ML, 1ML IVPush PRN (19:00)
[2020-04-08] MEDS ORDERED: [UNRECOGNIZED DRUG - REMARK] XX ONE (19:00)
[2020-04-08] MEDS ORDERED: hydrALAzine 20 MG/ML, 1ML IV ONE (19:00)
[2020-04-08] MEDS ORDERED: ENALAPRILAT 1.25 MG/ML, 2ML IV STA (19:18)
[2020-04-08] MEDS ORDERED: ENALAPRILAT 1.25 MG/ML, 2ML IV PRN (19:30)
[2020-04-08] MEDS: NEBIVOLOL HCL 5 MG TABLET PO SCH ×2 (20:41→22:33)
[2020-04-08] MEDS: CEFDINIR 300 MG CAPSULE PO SCH ×2 (20:41→22:32)
[2020-04-08] MEDS ORDERED: LABETALOL 5MG/ML, 20ML IVPush ONE ×2 (21:00→21:30)
[2020-04-08] MEDS ORDERED: CEFDINIR 300 MG CAPSULE PO SCH (21:00)
[2020-04-09] VITALS (12 sets, daily range): BP systolic 112–195; BP diastolic 67–98
[2020-04-09] MEDS: HYDROcodone/APAP 10/325 MG TABLET PO PRN ×2 (02:13→18:35)
[2020-04-09] MEDS: ACETAMINOPHEN 325 MG TABLET PO PRN ×2 (04:33→21:06)
[2020-04-09] MEDS: QUETIAPINE 25MG TABLET PO PRN (04:35)
[2020-04-09] MEDS: DICYCLOMINE 20 MG TABLET PO SCH ×4 (05:41→21:06)
[2020-04-09] MEDS ORDERED: HYDROCHLOROTHIAZIDE 12.5 MG CAPSULE PO SCH (09:30)
[2020-04-09] MEDS: CEFDINIR 300 MG CAPSULE PO SCH ×3 (09:30→21:07)
[2020-04-09] MEDS: SENNA/DOCUSATE TABLET PO SCH (09:45)
[2020-04-09] MEDS: METOPROLOL TARTRATE 100 MG TAB PO SCH ×2 (09:45→21:07)
[2020-04-09] MEDS: TOPIRAMATE 25 MG TABLET PO SCH ×2 (09:45→21:06)
[2020-04-09] MEDS: NEBIVOLOL HCL 5 MG TABLET PO SCH ×2 (09:46→21:06)
[2020-04-09] MEDS: APIXABAN 5 MG TABLET PO SCH ×2 (09:46→21:07)
[2020-04-09] MEDS: SERTRALINE 100MG TABLET PO SCH (09:46)
[2020-04-09] MEDS: SODIUM CHLORIDE FLUSH 10ML SYR IVF SCH ×2 (09:47→21:07)
[2020-04-10 00:33] VITALS: BP 126/73
[2020-04-10] MEDS: HYDROcodone/APAP 10/325 MG TABLET PO PRN ×4 (00:51→21:51)
[2020-04-10] MEDS: ACETAMINOPHEN 325 MG TABLET PO PRN (02:32)
[2020-04-10] MEDS: DICYCLOMINE 20 MG TABLET PO SCH ×4 (06:24→21:49)
[2020-04-10 06:55] VITALS: BP 162/83
[2020-04-10] MEDS: TOPIRAMATE 25 MG TABLET PO SCH ×2 (08:52→21:58)
[2020-04-10] MEDS: APIXABAN 5 MG TABLET PO SCH ×2 (08:53→21:53)
[2020-04-10] MEDS: CEFDINIR 300 MG CAPSULE PO SCH ×2 (08:53→21:49)
[2020-04-10] MEDS: NEBIVOLOL HCL 5 MG TABLET PO SCH ×2 (08:53→21:53)
[2020-04-10] MEDS: LISINOPRIL 10 MG TABLET PO SCH ×2 (08:53→21:53)
[2020-04-10] MEDS: METOPROLOL TARTRATE 100 MG TAB PO SCH ×2 (08:53→21:51)
[2020-04-10] MEDS: SERTRALINE 100MG TABLET PO SCH (08:53)
[2020-04-10] MEDS: SODIUM CHLORIDE FLUSH 10ML SYR IVF SCH ×2 (08:57→22:04)
[2020-04-10] MEDS: SENNA/DOCUSATE TABLET PO SCH (09:00)
[2020-04-10 14:48] VITALS: BP 164/78
[2020-04-10 21:17] VITALS: BP 162/88
[2020-04-10] MEDS ORDERED: GABAPENTIN 100 MG CAPSULE PO PRN (22:30)
[2020-04-11 01:14] VITALS: BP 151/76
[2020-04-11] MEDS: HYDROcodone/APAP 10/325 MG TABLET PO PRN ×3 (04:39→22:24)
[2020-04-11] MEDS: DICYCLOMINE 20 MG TABLET PO SCH ×4 (06:14→20:26)
[2020-04-11 07:25] VITALS: BP 143/80
[2020-04-11] MEDS: SENNA/DOCUSATE TABLET PO SCH (08:26)
[2020-04-11] MEDS: APIXABAN 5 MG TABLET PO SCH ×2 (08:44→20:25)
[2020-04-11] MEDS: SERTRALINE 100MG TABLET PO SCH (08:45)
[2020-04-11] MEDS: TOPIRAMATE 25 MG TABLET PO SCH ×2 (08:45→20:26)
[2020-04-11] MEDS: METOPROLOL TARTRATE 100 MG TAB PO SCH ×2 (08:45→20:26)
[2020-04-11] MEDS: LISINOPRIL 20 MG TABLET PO SCH ×2 (08:45→20:26)
[2020-04-11] MEDS: NEBIVOLOL HCL 5 MG TABLET PO SCH ×2 (08:45→20:27)
[2020-04-11] MEDS: CEFDINIR 300 MG CAPSULE PO SCH ×2 (08:48→20:26)
[2020-04-11] MEDS: SODIUM CHLORIDE FLUSH 10ML SYR IVF SCH ×2 (09:00→20:27)
[2020-04-11 14:59] VITALS: BP 151/75
[2020-04-11 19:47] VITALS: BP 145/78
[2020-04-12 02:32] VITALS: BP 146/78
[2020-04-12] MEDS: HYDROcodone/APAP 10/325 MG TABLET PO PRN (05:23)
[2020-04-12] MEDS: DICYCLOMINE 20 MG TABLET PO SCH ×4 (05:23→20:25)
[2020-04-12 07:38] VITALS: BP 139/71
[2020-04-12] MEDS: TOPIRAMATE 25 MG TABLET PO SCH ×2 (08:09→20:25)
[2020-04-12] MEDS: NEBIVOLOL HCL 5 MG TABLET PO SCH ×2 (08:09→20:25)
[2020-04-12] MEDS: APIXABAN 5 MG TABLET PO SCH ×2 (08:09→20:25)
[2020-04-12] MEDS: SERTRALINE 100MG TABLET PO SCH (08:10)
[2020-04-12] MEDS: METOPROLOL TARTRATE 100 MG TAB PO SCH ×2 (08:10→20:25)
[2020-04-12] MEDS: LISINOPRIL 20 MG TABLET PO SCH ×2 (08:10→20:24)
[2020-04-12] MEDS: SENNA/DOCUSATE TABLET PO SCH (08:19)
[2020-04-12] MEDS: SODIUM CHLORIDE FLUSH 10ML SYR IVF SCH ×2 (08:19→20:26)
[2020-04-12] MEDS: HYDROcodone/APAP 5/325 TABLET PO PRN ×3 (11:42→17:22)
[2020-04-12 13:25] VITALS: BP 139/81
[2020-04-12 20:33] VITALS: BP 147/80
[2020-04-12] MEDS ORDERED: HYDROcodone/APAP 10/325 MG TABLET PO ONE (23:30)
[2020-04-13 02:32] VITALS: BP_SYST 119; BP_SYST 149; BP_DIAS 72; BP_DIAS 74
[2020-04-13] MEDS: DICYCLOMINE 20 MG TABLET PO SCH ×4 (05:24→21:27)
[2020-04-13 06:27] LABS: CREATININE 1.09 mg/dL (0.55-1.02)
[2020-04-13 07:01] VITALS: BP 136/80
[2020-04-13] MEDS ORDERED: TOPIRAMATE 100 MG TABLET ONE (08:28)
[2020-04-13] MEDS: TOPIRAMATE 25 MG TABLET PO SCH ×2 (08:31→21:27)
[2020-04-13] MEDS: NEBIVOLOL HCL 5 MG TABLET PO SCH ×2 (08:31→21:27)
[2020-04-13] MEDS: APIXABAN 5 MG TABLET PO SCH ×2 (08:31→21:27)
[2020-04-13] MEDS: METOPROLOL TARTRATE 100 MG TAB PO SCH ×2 (08:31→21:27)
[2020-04-13] MEDS: SERTRALINE 100MG TABLET PO SCH (08:31)
[2020-04-13] MEDS: SENNA/DOCUSATE TABLET PO SCH (08:32)
[2020-04-13] MEDS: HYDROcodone/APAP 5/325 TABLET PO PRN ×2 (08:32→16:50)
[2020-04-13] MEDS: LISINOPRIL 20 MG TABLET PO SCH ×2 (08:32→21:28)
[2020-04-13] MEDS: SODIUM CHLORIDE FLUSH 10ML SYR IVF SCH ×2 (08:33→21:31)
[2020-04-13 13:08] VITALS: BP 123/65
[2020-04-13] MEDS ORDERED: LORazepam 0.5MG TABLET PO ONE (14:00)
[2020-04-13 19:50] VITALS: BP 135/85
[2020-04-13] MEDS: LORazepam 0.5MG TABLET PO PRN (20:03)
[2020-04-13 21:23] VITALS: BP 130/71
[2020-04-14 00:41] VITALS: BP 131/81
[2020-04-14] MEDS: DICYCLOMINE 20 MG TABLET PO SCH ×4 (06:06→20:54)
[2020-04-14 07:06] VITALS: BP 131/83
[2020-04-14] MEDS: TOPIRAMATE 25 MG TABLET PO SCH ×3 (08:27→20:57)
[2020-04-14] MEDS: LISINOPRIL 20 MG TABLET PO SCH ×2 (08:27→20:54)
[2020-04-14] MEDS: SENNA/DOCUSATE TABLET PO SCH (08:27)
[2020-04-14] MEDS: NEBIVOLOL HCL 5 MG TABLET PO SCH ×2 (08:27→21:00)
[2020-04-14] MEDS: SERTRALINE 100MG TABLET PO SCH (08:28)
[2020-04-14] MEDS: HYDROcodone/APAP 5/325 TABLET PO PRN ×3 (08:28→23:52)
[2020-04-14] MEDS: METOPROLOL TARTRATE 100 MG TAB PO SCH ×2 (08:28→20:54)
[2020-04-14] MEDS: APIXABAN 5 MG TABLET PO SCH ×2 (08:28→20:54)
[2020-04-14] MEDS: SODIUM CHLORIDE FLUSH 10ML SYR IVF SCH ×2 (08:30→21:01)
[2020-04-14] MEDS: LORazepam 0.5MG TABLET PO PRN (09:45)
[2020-04-14 12:39] VITALS: BP 107/64
[2020-04-14 19:37] VITALS: BP 136/70
[2020-04-15 01:52] VITALS: BP 143/81
[2020-04-15] MEDS: DICYCLOMINE 20 MG TABLET PO SCH ×2 (05:28→11:00)
[2020-04-15 06:42] VITALS: BP 143/80
[2020-04-15] MEDS: APIXABAN 5 MG TABLET PO SCH (08:52)
[2020-04-15] MEDS: SENNA/DOCUSATE TABLET PO SCH (08:52)
[2020-04-15] MEDS: SERTRALINE 100MG TABLET PO SCH (08:53)
[2020-04-15] MEDS: NEBIVOLOL HCL 5 MG TABLET PO SCH (08:53)
[2020-04-15] MEDS: TOPIRAMATE 25 MG TABLET PO SCH (08:53)
[2020-04-15] MEDS: LISINOPRIL 20 MG TABLET PO SCH (08:53)
[2020-04-15] MEDS: METOPROLOL TARTRATE 100 MG TAB PO SCH (08:58)
[2020-04-15] MEDS: SODIUM CHLORIDE FLUSH 10ML SYR IVF SCH (09:00)
[2020-04-15] MEDS: LORazepam 0.5MG TABLET PO PRN (09:01)
[2020-04-15] MEDS: HYDROcodone/APAP 5/325 TABLET PO PRN (10:42)
[2020-04-15] MEDS ORDERED: HYDROcodone/APAP 10/325 MG TABLET PO ONE (11:00)
[2020-04-15] MEDS ORDERED: cloniDINE 0.1MG PATCH TD SCH (18:30)
== END 2020-04-15 12:53 | disposition left against medical advice (07) | DRG 689 ==
LOC: ED 23:00 → 3N 04-07 00:02
PROVIDERS: ADMIT Family Medicine; ATTEND Family Medicine
PROC: 0T9B70Z Drainage of Bladder with Drainage Device, Via Natural or Artificial Opening (ICD-10-PCS; principal; 2020-04-06)
DX: N39.0 Urinary tract infection, site not specified (principal); G93.41 Metabolic encephalopathy; F11.20 Opioid dependence, uncomplicated; F23 Brief psychotic disorder; F03.91 Unspecified dementia, unspecified severity, with behavioral disturbance; F41.9 Anxiety disorder, unspecified; F32.9 Major depressive disorder, single episode, unspecified; F41.0 Panic disorder [episodic paroxysmal anxiety]; G43.909 Migraine, unspecified, not intractable, without status migrainosus; G89.29 Other chronic pain; I16.0 Hypertensive urgency; I10 Essential (primary) hypertension; Z86.73 Personal history of transient ischemic attack (TIA), and cerebral infarction without residual deficits; Z79.899 Other long term (current) drug therapy
CPT/HCPCS: 36415; 70450; 80048; 80053; 80307; 81001; 82565; 83735; 84443; 85025; 87077; 87086; 87186; 93005; 99285; G0378; J0696; J2310; Q0162; 92523-GN; J0360; J1630; J7030